=== PATIENT | female | born 2000 | race Two or more races ===

== ENCOUNTER → 2022-06-27 | Outpatient (CLI) | payer OTHER ==
[~2022-06-27] MED LIST: MACR100C43 PO
[2022-06-27 15:54] LABS: HEMATOCRIT 34.5 % (36.0-47.0); HEMOGLOBIN 11.1 g/dl (12.0-15.5); MEAN CORPUSCULAR HEMOGLOBIN 28.8 pg (27.0-33.0); MEAN CORPUSCULAR HGB CONC 32.2 g/dl (32.0-36.5); MEAN CORPUSCULAR VOLUME 89.4 fl (80.0-96.0); PLATELET COUNT, AUTOMATED 279 10^3/uL (150-450); RED BLOOD COUNT 3.86 10^6/uL (4.00-5.40); WHITE BLOOD COUNT 9.3 10^3/uL (4.0-10.0)
[2022-06-27 17:13] LABS: GC DNA AMPLIFICATION NEGATIVE (NEGATIVE)
== END ==
LOC: M PLALAB 10:30
PROVIDERS: ATTEND Obstetrics & Gynecology
DX: Z34.92 Encounter for supervision of normal pregnancy, unspecified, second trimester (principal); Z3A.22 22 weeks gestation of pregnancy

== ENCOUNTER 2022-06-28 00:35 | Emergency (ER) | payer BC, OTHER ==
[~2022-06-28] VITALS: Ht 162.6 cm; Wt 70.4 kg
[2022-06-28 03:53] LABS: BASO % 0.3 % (0.0-1.0); EOS % 0.2 % (0.0-3.0); HEMATOCRIT 33.4 % (36.0-47.0); LYMPH # 1.8 10^3/uL (1.5-5.0); LYMPH % 15.8 % (24.0-44.0); MEAN CORPUSCULAR HEMOGLOBIN 29.3 pg (27.0-33.0); MEAN CORPUSCULAR HGB CONC 32.9 g/dl (32.0-36.5); MEAN CORPUSCULAR VOLUME 89.1 fl (80.0-96.0); MONO # 0.7 10^3/uL (0.0-0.8); MONO % 6.4 % (2.0-8.0); NEUTROPHILS # 8.6 10^3/uL (1.5-8.5); NEUTROPHILS % 76.9 % (36.0-66.0); PLATELET COUNT, AUTOMATED 282 10^3/uL (150-450); RED BLOOD COUNT 3.75 10^6/uL (4.00-5.40); WHITE BLOOD COUNT 11.2 10^3/uL (4.0-10.0)
[2022-06-28] MEDS ORDERED: NS 1,000 ML IV ONE (04:50)
[2022-06-28 04:59] LABS: BLOOD UREA NITROGEN 6 MG/DL (7-18); CARBON DIOXIDE LEVEL 25 MEQ/L (21-32); CHLORIDE LEVEL 105 MEQ/L (98-107); CREATININE FOR GFR 0.66 MG/DL (0.55-1.30); ETHYL ALCOHOL (ETHANOL) < 0.003 % (0.000-0.010); GLUCOSE, FASTING 81 MG/DL (70-100); SODIUM LEVEL 136 MEQ/L (136-145)
[2022-06-28 05:10] LABS: BACTERIA, URINE SMALL AMOUNT; HYALINE CAST, URINE NONE SEEN /lpf (0-1); SQUAMOUS EPITHELIAL CELL URINE LARGE AMOUNT /hpf (SMALL AMT); WBC, URINE TNTC /hpf (0-3)
[2022-06-28 05:41] LABS: AMPHETAMINES LEVEL URINE NEGATIVE (NEGATIVE); BARBITURATES URINE NEGATIVE (NEGATIVE); BENZODIAZEPINES URINE NEGATIVE (NEGATIVE); CANNABINOIDS URINE NEGATIVE (NEGATIVE); COCAINE METABOLITE URINE NEGATIVE (NEGATIVE); METHADONE URINE NEGATIVE (NEGATIVE); OPIATES URINE NEGATIVE (NEGATIVE); PHENCYCLIDINE URINE NEGATIVE (NEGATIVE)
[2022-06-28 06:45] VITALS: BP 95/60
[2022-06-28] MEDS ORDERED: MACR100C43 PO (06:51)
== END 2022-06-28 07:03 | disposition home or self-care (01) ==
LOC: M ED 00:35
DX: R55 Syncope and collapse (principal); N39.0 Urinary tract infection, site not specified; I45.10 Unspecified right bundle-branch block; F41.9 Anxiety disorder, unspecified

== ENCOUNTER → 2022-07-04 | Outpatient (CLI) | payer BC, OTHER | LOC: M WHC 07:34 | PROVIDERS: ATTEND Obstetrics & Gynecology | DX: O26.849 Uterine size-date discrepancy, unspecified trimester (principal); Z3A.28 28 weeks gestation of pregnancy ==

== ENCOUNTER → 2022-08-29 | Outpatient (REF) | payer BC, OTHER | LOC: M PLALAB 17:18 | PROVIDERS: ATTEND Specialist | DX: Z34.83 Encounter for supervision of other normal pregnancy, third trimester (principal) ==

== ENCOUNTER 2022-09-29 02:15 | Inpatient (IN) | payer BC, OTHER ==
[~2022-09-29] VITALS: Ht 162.6 cm; Wt 73.8 kg
[2022-09-29] VITALS (47 sets, daily range): BP systolic 87–144; BP diastolic 50–88
[2022-09-29] MEDS ORDERED: TUMS500C PO (02:24)
[2022-09-29] MEDS ORDERED: HOME MED LIST COMPLETE! XX SCH (02:35)
[2022-09-29 03:04] LABS: HEMATOCRIT 32.6 % (36.0-47.0); HEMOGLOBIN 10.3 g/dl (12.0-15.5); MEAN CORPUSCULAR HEMOGLOBIN 25.6 pg (27.0-33.0); MEAN CORPUSCULAR HGB CONC 31.6 g/dl (32.0-36.5); MEAN CORPUSCULAR VOLUME 81.1 fl (80.0-96.0); PLATELET COUNT, AUTOMATED 253 10^3/uL (150-450); RED BLOOD COUNT 4.02 10^6/uL (4.00-5.40); WHITE BLOOD COUNT 11.5 10^3/uL (4.0-10.0)
[2022-09-29] MEDS ORDERED: LACTATED RINGER'S 1000 ML IV STA (03:19)
[2022-09-29] MEDS ORDERED: CARBOPROST TROMETHAMINE 250 MCG/ML AMP IM PRN (03:20)
[2022-09-29] MEDS ORDERED: TRANEXAMIC ACID INJection 1,000 MG in NS 100 ML IV PRN (03:20)
[2022-09-29] MEDS ORDERED: LIDOCAINE 1% MDV 20ML VIAL INFIL PRN (03:20)
[2022-09-29] MEDS ORDERED: METHYLERGONOVINE MALEATE 0.2 MG/ML VIAL (J2210) IM PRN (03:20)
[2022-09-29] MEDS ORDERED: diphenhydrAMINE 50MG/ML VIAL IV PRN (03:35)
[2022-09-29] MEDS ORDERED: ONDANSETRON 4MG 2ML VIAL IV PRN (03:35)
[2022-09-29] MEDS ORDERED: ePHEDrine SULFATE 25 MG/5 ML(5MG/ML) SYRINGE IVP PRN (03:35)
[2022-09-29] MEDS ORDERED: EPIDURAL/PCA KEYS XX PRN (03:35)
[2022-09-29] MEDS ORDERED: FENTANYL/ROPIVACAINE/NACL BAG 100 ML EPIDURAL SCH (03:35)
[2022-09-29] MEDS ORDERED: NALOXONE INJ 0.4MG/1ML VIAL (J2310 PER 1MG) IV PRN (03:35)
[2022-09-29] MEDS ORDERED: LR 500 ML IV PRN (03:35)
[2022-09-29] MEDS: LR 1,000 ML IV SCH ×2 (03:48→09:19)
[2022-09-29] MEDS ORDERED: OXYTOCIN 30 UNITS IN 0.9% NaCl 500ML IV BAG (J2590) As Ordered ONE (07:08)
[2022-09-29] MEDS ORDERED: DOCUSATE SODIUM 100MG CAPSULE PO PRN (11:55)
[2022-09-29] MEDS ORDERED: ACETAMINOPHEN TAB 650MG DOSE (2X325MG) PO PRN (11:55)
[2022-09-29] MEDS ORDERED: IBUPROFEN 600MG TAB PO PRN (11:55)
[2022-09-29] MEDS ORDERED: IBUPROFEN 800 MG TAB PO PRN (11:55)
[2022-09-29] MEDS ORDERED: ACETAMINOPHEN 500 MG TAB PO PRN (11:55)
[2022-09-29] MEDS ORDERED: RHOGAM 300 MCG (1500 IU) INJ (J2790) IM SCH (11:55)
[2022-09-29] MEDS ORDERED: MOM 30ML SUSPENSION UDC PO PRN (11:55)
[2022-09-29] MEDS ORDERED: DIBUCAINE 1% OINTMENT 30GM TOP PRN (11:55)
[2022-09-29] MEDS ORDERED: ANUSOL HC CREAM 30GM TOP PRN (11:55)
[2022-09-29] MEDS ORDERED: OXYTOCIN DRIP 30 UNITS in IV 1 EA IV ONE (12:30)
[2022-09-29] MEDS: PRENATAL VITAMINS CHEWABLE TABLET PO SCH (13:47)
[2022-09-30 06:00] VITALS: BP 99/55
[2022-09-30 06:31] VITALS: BP 125/74
[2022-09-30] MEDS: PRENATAL VITAMINS CHEWABLE TABLET PO SCH (09:00)
[2022-10-01 06:00] VITALS: BP 114/73
[2022-10-01] MEDS: PRENATAL VITAMINS CHEWABLE TABLET PO SCH (08:19)
[2022-10-01] MEDS ORDERED: MEASLES,MUMPS,RUBELLA VACCINE INJ (MMR-II) (90707) SC.IMMUN ONE (09:00)
[2022-10-01] MEDS ORDERED: ACET-683 PO (11:47)
[2022-10-01] MEDS ORDERED: IBUP80TA PO (11:47)
== END 2022-10-01 13:20 | disposition home or self-care (01) | DRG 560 ==
LOC: M LDO 02:15 → M LDI 02:43 → M OBS 17:29
PROVIDERS: ADMIT Obstetrics & Gynecology; ATTEND Obstetrics & Gynecology
PROC: 10E0XZZ Delivery of Products of Conception, External Approach (ICD-10-PCS; principal; 2022-09-29)
PROC: 0HQ9XZZ Repair Perineum Skin, External Approach (ICD-10-PCS; 2022-09-29)
PROC: 10907ZC Drainage of Amniotic Fluid, Therapeutic from Products of Conception, Via Natural or Artificial Opening (ICD-10-PCS; 2022-09-29)
DX: O48.0 Post-term pregnancy (principal); O70.0 First degree perineal laceration during delivery; Z37.0 Single live birth; Z3A.40 40 weeks gestation of pregnancy

== ENCOUNTER 2022-11-28 15:33 | Emergency (ER) | payer BC, OTHER ==
[~2022-11-28] VITALS: Ht 162.6 cm; Wt 68.2 kg
[~2022-11-28 15:33] MED LIST changes: +ACET-683 PO; +IBUP80TA PO; +TUMS500C PO
[2022-11-28 15:35] VITALS: BP 111/63
[2022-11-28 17:38] LABS: BASO % 0.4 % (0.0-1.0); EOS # 0.1 10^3/uL (0.0-0.5); EOS % 0.7 % (0.0-3.0); HEMATOCRIT 37.4 % (36.0-47.0); HEMOGLOBIN 11.7 g/dl (12.0-15.5); LYMPH # 2.3 10^3/uL (1.5-5.0); LYMPH % 31.6 % (24.0-44.0); MEAN CORPUSCULAR HEMOGLOBIN 25.6 pg (27.0-33.0); MEAN CORPUSCULAR HGB CONC 31.3 g/dl (32.0-36.5); MEAN CORPUSCULAR VOLUME 81.8 fl (80.0-96.0); MONO # 0.5 10^3/uL (0.0-0.8); MONO % 7.4 % (2.0-8.0); NEUTROPHILS # 4.3 10^3/uL (1.5-8.5); NEUTROPHILS % 59.8 % (36.0-66.0); PLATELET COUNT, AUTOMATED 346 10^3/uL (150-450); RED BLOOD COUNT 4.57 10^6/uL (4.00-5.40); WHITE BLOOD COUNT 7.2 10^3/uL (4.0-10.0)
[2022-11-28 18:05] LABS: BLOOD UREA NITROGEN 12 MG/DL (9-23); CALCIUM LEVEL 8.9 MG/DL (8.5-10.1); CARBON DIOXIDE LEVEL 25 MMOL/L (20-31); CHLORIDE LEVEL 106 MMOL/L (98-107); CREATININE FOR GFR 0.75 MG/DL (0.55-1.30); GLUCOSE, FASTING 81 MG/DL (60-100); POTASSIUM SERUM 4.3 MMOL/L (3.5-5.1); SODIUM LEVEL 137 MMOL/L (136-145)
[2022-11-28 23:25] LABS: HCG, SERUM QUANTITATIVE < 2.6 MIU/ML (<4.2)
[2022-11-29] MEDS ORDERED: ESTR0.1C5 (15:25)
[2022-11-29] MEDS ORDERED: TRI-TAB (15:25)
== END 2022-11-28 23:00 | disposition left against medical advice (07) ==
LOC: M ED 15:33
DX: Z53.21 Procedure and treatment not carried out due to patient leaving prior to being seen by health care provider (principal)

== ENCOUNTER 2022-11-29 15:17 | Emergency (ER) | payer BC, OTHER ==
[~2022-11-29] VITALS: Ht 162.6 cm; Wt 66.5 kg
[2022-11-29 15:19] VITALS: BP 112/62
[2022-11-29] MEDS ORDERED: ESTR0.1C5 (15:25)
[2022-11-29] MEDS ORDERED: TRI-TAB (15:25)
[2022-11-29 16:13] LABS: HEMATOCRIT 36.4 % (36.0-47.0); HEMOGLOBIN 11.6 g/dl (12.0-15.5); MEAN CORPUSCULAR HEMOGLOBIN 25.8 pg (27.0-33.0); MEAN CORPUSCULAR HGB CONC 31.9 g/dl (32.0-36.5); MEAN CORPUSCULAR VOLUME 81.1 fl (80.0-96.0); PLATELET COUNT, AUTOMATED 328 10^3/uL (150-450); RED BLOOD COUNT 4.49 10^6/uL (4.00-5.40); WHITE BLOOD COUNT 6.5 10^3/uL (4.0-10.0)
[2022-11-29 16:23] LABS: INR 0.98; PROTHROMBIN TIME 13.2 SECONDS (12.5-14.5)
[2022-11-29 16:24] LABS: PARTIAL THROMBOPLASTIN TIME 25.1 SECONDS (24.8-34.2)
[2022-11-29 16:45] LABS: RSV AMPLIFICATION NEGATIVE (NEGATIVE)
== END 2022-11-29 18:45 | disposition home or self-care (01) ==
LOC: M ED 15:17
DX: R10.9 Unspecified abdominal pain (principal); O73.1 Retained portions of placenta and membranes, without hemorrhage; N93.9 Abnormal uterine and vaginal bleeding, unspecified; Z79.899 Other long term (current) drug therapy

== ENCOUNTER → 2024-01-15 | Outpatient (REF) | payer OTHER ==
[~2024-01-15] MED LIST changes: +ESTR0.1C5; +TRI-TAB
== END ==
LOC: M PLALAB 12:22
PROVIDERS: ATTEND Advanced Practice Midwife
DX: N93.9 Abnormal uterine and vaginal bleeding, unspecified (principal); N94.12 Deep dyspareunia; Z53.9 Procedure and treatment not carried out, unspecified reason

== ENCOUNTER → 2024-01-15 | Outpatient (CLI) | payer BC, OTHER ==
[2024-01-15 16:33] LABS: HCG, SERUM QUALITATIVE NEGATIVE (NEGATIVE)
[2024-01-15 16:35] LABS: THYROID STIMULATING HORMONE 3.141 uIU/ML (0.55-4.78)
[2024-01-15 16:37] LABS: FREE T4 1.08 NG/DL (0.89-1.76)
== END ==
LOC: M PLALAB 12:33
PROVIDERS: ATTEND Advanced Practice Midwife
DX: N93.9 Abnormal uterine and vaginal bleeding, unspecified (principal); N94.12 Deep dyspareunia